=== PATIENT | male | born 1950 | race Caucasian/White ===

== ENCOUNTER → 2017-08-14 08:04 | Outpatient (CLI) | payer MEDICARE, OTHER, SELFPAY ==
[2017-08-14 09:18] LABS: Alanine Aminotransferase 22 IU/L (21-72); Albumin 3.9 g/dL (3.5-5.0); Albumin Globulin Ratio 1.5 (1.0-2.8); Alkaline Phosphatase 43 U/L (38-126); Aspartate Aminotransferase 20 IU/L (17-59); Bilirubin Total 0.7 mg/dL (0.2-1.3); Blood Urea Nitrogen 26 mg/dL (9-20); Calcium 9.2 mg/dL (8.4-10.2); Carbon Dioxide 30 mmol/L (22-32); Chloride 103 mmol/L (98-107); Cholesterol 151 mg/dL (140-199); Estimated Glomerular Filt Rate > 60.0 mL/min (>60); Globulin 2.6 g/dL (1.7-4.1); Glucose 96 mg/dL (80-110); HDL Cholesterol 25 mg/dL (40-60); HEMOLYSIS < 15 (0-50); LDL Cholesterol Calculated 103 mg/dL (<100); Potassium 4.6 mmol/L (3.4-5.1); Sodium 142 mmol/L (137-145); Total Protein 6.5 g/dL (6.3-8.2); Triglycerides 115 mg/dL (35-150)
[2017-08-14 09:33] LABS: Hemoglobin 12.2 g/dL (13.5-17.5); Mean Corpuscular HGB Conc 31.2 % (30-36); Mean Corpuscular Hemoglobin 21.4 PG (26-34); Mean Corpuscular Volume 68.4 fL (80-100); Platelet Count 239 X10^3/uL (150-400); Red Cell Distribution Width 15.4 % (11.6-14.8); White Blood Cell Count 2.9 X10^3/uL (4.5-11.0)
[2017-08-14 09:43] LABS: Prostate Specific Antigen Scrn 1.08 ng/mL (0.1-4.0)
[2017-08-14 09:52] LABS: Add Manual Diff / Slide Review YES
[2017-08-14 10:34] LABS: Thyroid Stimulating Hormone 1.84 uIU/mL (0.47-4.68)
[2017-08-14 11:54] LABS: Neutrophils Absolute Manual 1943 /uL (3000-5900); Total Cells Counted 100
[2017-08-14 11:55] LABS: Microcytosis 1+
[2017-08-14 11:56] LABS: Hypochromasia 2+; Ovalocytes 1+
== END ==
PROVIDERS: PCP Family Medicine; Visit Provider Family Medicine
DX: E78.5 Hyperlipidemia, unspecified (principal); Z12.5 Encounter for screening for malignant neoplasm of prostate; Z86.2 Personal history of diseases of the blood and blood-forming organs and certain disorders involving the immune mechanism
CPT/HCPCS: 36415; 80053; 80061; 84443; 85025; G0103

== ENCOUNTER 2017-11-15 07:29 | Day surgery (SDC) | payer MEDICARE, OTHER, SELFPAY ==
[2017-11-15] VITALS (7 sets, daily range): BP systolic 100–138; BP diastolic 65–85; PULSE 50–60; RESP 12–16; TEMP 36–36.3; O2SAT 94–96; BMI 31.7
--- NOTE | 2017-11-15 | PATH_ITS ---
[facility] Accession Number: [id number] . 01 Material submitted: . PART A: CECAL POLYP PART B: ASCENDING COLON POLYP . 02 Diagnosis: A. Cecal Polyp: Tubular adenoma. . B. Ascending Colon Polyp: Tubular adenoma. MRV/11/16/2017 . 02 Electronically signed: . Shukri Cox MD, PhD, Pathologist NPI- [id number] . 01 Gross description: . Received two formalin-filled containers, both labeled with the patient's name: . A. In a container labeled 1. Cecal polyp, the specimen consists of two 0.1-0.3 cm portions of tissue, entirely submitted in cassette A. B. In a container labeled ascending col. polyp, the specimen consists of a 0.2 cm portion of tissue, entirely submitted in cassette B. ([id number]) /FRR . 02 Pathologist provided ICD-10: D12.0, D12.2 . 02 CPT . 385804, [id number] Performed at: 01 [facility] [address] [id number] MD Mansoor Sampson MD Phone: [phone] Performed at: 02 [facility] [address] [place], [place] [id number] MD Orestes Stewart MD Phone: [phone]
[2017-11-15] MEDS: SODIUM CHLORIDE 0.9% 1,000 ML 100 ML IV (08:01)
--- NOTE | 2017-11-15 08:52 | PM.HP.1 ---
History of Present Illness Date Patient Seen: 11/15/17 Time Patient Seen: 08:53 Chief complaint: [id number] COLONOSCOPY W/POSS BX Narrative: History of polyps and surveillance colonoscopy Patient History Medical History Prostatism (Acute) Family & Social History Social History: household members spouse Tobacco & Substance use: Smoking Status Unknown if ever smoked Meds Home Medications Medication Instructions Recorded Confirmed Type ASPIRIN (#ASPIR 81) 81 mg PO Q DAY #0 09/27/12 08/22/17 History CA PANTOTHENATE/FOLIC ACID/VIT 1 tab PO Q DAY #0 09/27/12 08/22/17 History (MULTIVITAMIN) FERROUS SULFATE 325 PO QDAY #0 09/27/12 08/22/17 History magnesium citrate 300 ml PO Q DAY #0 09/27/12 08/22/17 History tamsulosin 0.4 mg capsule 0.4 mg PO BID #180 cap 07/11/17 08/22/17 Rx finasteride 5 mg tablet 5 mg PO Q DAY #90 tab 07/21/17 08/22/17 Rx Allergies Allergy/AdvReac Type Severity Reaction Status Date / Time tetracycline Allergy Mild RASH/TOPICA Verified 11/15/17 08:00 L Exam Vital Signs (past 8 hours): - HEENT: Oropharynx free of lesions Chest: Clear to auscultation percussion Cardiac exam: No S3 or murmur 11/15/17 07:43 Temperature 96.8 F L Pulse Rate 60 Respiratory Rate 16 Blood Pressure 138/85 Pulse Oximetry 96 Oxygen Delivery Method Room Air Assessment & Plan Plan: Assessment/Plan Narrative: History of polyps need for follow-up colonoscopy had a 5+ year interval Colonoscopy will be performed today
--- NOTE | 2017-11-15 08:55 | P.HP_ITS ---
History of Present Illness Date Patient Seen: 11/15/17 Time Patient Seen: 08:53 Chief complaint: [id number] COLONOSCOPY W/POSS BX Narrative: History of polyps and surveillance colonoscopy Patient History Medical History Prostatism (Acute) Family & Social History Social History: household members spouse Tobacco & Substance use: Smoking Status Unknown if ever smoked Meds Home Medications Medication Instructions Recorded Confirmed Type ASPIRIN (#ASPIR 81) 81 mg PO Q DAY #0 09/27/12 08/22/17 History CA PANTOTHENATE/FOLIC ACID/VIT 1 tab PO Q DAY #0 09/27/12 08/22/17 History (MULTIVITAMIN) FERROUS SULFATE 325 PO QDAY #0 09/27/12 08/22/17 History magnesium citrate 300 ml PO Q DAY #0 09/27/12 08/22/17 History tamsulosin 0.4 mg capsule 0.4 mg PO BID #180 cap 07/11/17 08/22/17 Rx finasteride 5 mg tablet 5 mg PO Q DAY #90 tab 07/21/17 08/22/17 Rx Allergies Allergy/AdvReac Type Severity Reaction Status Date / Time tetracycline Allergy Mild RASH/TOPICA Verified 11/15/17 08:00 L Exam Vital Signs (past 8 hours): - HEENT: Oropharynx free of lesions Chest: Clear to auscultation percussion Cardiac exam: No S3 or murmur 11/15/17 07:43 Temperature 96.8 F L Pulse Rate 60 Respiratory Rate 16 Blood Pressure 138/85 Pulse Oximetry 96 Oxygen Delivery Method Room Air Assessment & Plan Plan: Assessment/Plan Narrative: History of polyps need for follow-up colonoscopy had a 5+ year interval Colonoscopy will be performed today
[2017-11-15] MEDS: MIDAZOLAM 5 MG/5 ML VIAL IV (09:12)
[2017-11-15] MEDS: fentaNYL 250 MCG/5 ML INJ IV (09:13)
--- NOTE | 2017-11-15 09:13 | PM.OP.ENDO ---
Operative Date/Time/Diagnoses Date of procedure: 11/15/17 Time of procedure: 09:14 Pre-op diagnosis: See indications Post-op diagnosis: same Procedure & Clinicians Study performed: Colonoscopy Same procedure as scheduled: Yes Indications: History of colon polyps Surgeon: Lin Trevino Procedure Notes Procedure in detail: After informed consent was obtained the patient was placed in the left lateral decubitus position. The video colonoscope was introduced the rectum slowly advanced to the cecum. This was identified by IC valve and appendiceal orifice. On slow withdrawal mucosa was carefully examined. Preparation was excellent. Scope was removed. Patient tolerated procedure well. Blood loss none Complications none Sedation Fentanyl 100 mcg Versed 6 mg IV titration Total sedation time 22 min Findings 1. Scattered sigmoid diverticulosis. 2. 4 mm cecal polyp Jumbo biopsied removed completely 3. 6 mm polyp in the ascending colon cold snared and removed and retrieved. Patient will need follow-up colonoscopy in 5 years.
== END 2017-11-15 09:59 | disposition home or self-care (01) ==
PROVIDERS: PCP Family Medicine; Visit Provider Internal Medicine Gastroenterology
PROC: 0DJD8ZZ Inspection of Lower Intestinal Tract, Via Natural or Artificial Opening Endoscopic (ICD-10-PCS; CPT 45378; principal; 2017-11-15 08:30)
DX: Z12.11 Encounter for screening for malignant neoplasm of colon (principal); D12.0 Benign neoplasm of cecum; D12.2 Benign neoplasm of ascending colon; K57.30 Diverticulosis of large intestine without perforation or abscess without bleeding; N40.0 Benign prostatic hyperplasia without lower urinary tract symptoms; Z86.010 Personal history of colon polyps; Z79.82 Long term (current) use of aspirin
CPT/HCPCS: 45385; 45380; 88305; J2250; J3010

== ENCOUNTER → 2018-08-22 08:40 | Outpatient (CLI) | payer MEDICARE, OTHER, SELFPAY ==
[2018-08-22 09:21] LABS: Add Manual Diff / Slide Review NO; Basophils Absolute Auto 0 /uL (0-100); Basophils Percent Auto 0.6 % (0-2); Eosinophils Absolute Auto 100 /uL (0-450); Eosinophils Percent Auto 3.7 % (2-4); Hemoglobin 12.4 g/dL (13.5-17.5); Lymphocytes Absolute Auto 700 /uL (1100-4500); Lymphocytes Percent Auto 19.8 % (25-40); Mean Corpuscular HGB Conc 31.8 % (30-36); Mean Corpuscular Hemoglobin 21.5 PG (26-34); Mean Corpuscular Volume 67.5 fL (80-100); Monocytes Absolute Auto 400 /uL (0-900); Neutrophils Absolute Auto 2500 /uL (1500-7000); Neutrophils Percent Auto 65.9 % (50-75); Platelet Count 245 X10^3/uL (150-400); Red Blood Cell Count 5.78 X10^6/uL (4.5-5.9); Red Cell Distribution Width 16.2 % (11.6-14.8); White Blood Cell Count 3.7 X10^3/uL (4.5-11.0)
[2018-08-22 09:50] LABS: Alanine Aminotransferase 21 IU/L (21-72); Albumin 3.9 g/dL (3.5-5.0); Albumin Globulin Ratio 1.4 (1.0-2.8); Alkaline Phosphatase 43 U/L (38-126); Aspartate Aminotransferase 24 IU/L (17-59); Bilirubin Total 0.9 mg/dL (0.2-1.3); Blood Urea Nitrogen 21 mg/dL (9-20); Calcium 8.9 mg/dL (8.4-10.2); Carbon Dioxide 29 mmol/L (22-32); Chloride 104 mmol/L (98-107); Cholesterol 168 mg/dL (140-199); Estimated Glomerular Filt Rate > 60.0 mL/min (>60); Globulin 2.7 g/dL (1.7-4.1); Glucose 98 mg/dL (80-110); HDL Cholesterol 33 mg/dL (40-60); HEMOLYSIS < 15 (0-50); LDL Cholesterol Calculated 114 mg/dL (<100); Potassium 4.4 mmol/L (3.4-5.1); Sodium 139 mmol/L (137-145); Total Protein 6.6 g/dL (6.3-8.2); Triglycerides 103 mg/dL (35-150)
[2018-08-22 10:17] LABS: Thyroid Stimulating Hormone 2.77 uIU/mL (0.47-4.68)
[2018-08-22 10:20] LABS: Prostate Specific Antigen Scrn 1.12 ng/mL (0.1-4.0)
[2018-08-22 10:33] LABS: Basophilic Stippling 1+; Hypochromasia 1+; Polychromasia 1+
== END ==
PROVIDERS: PCP Family Medicine; Visit Provider Family Medicine
DX: D64.9 Anemia, unspecified (principal); E78.5 Hyperlipidemia, unspecified; Z12.5 Encounter for screening for malignant neoplasm of prostate
CPT/HCPCS: 36415; 80053; 80061; 84443; 85025; G0103

== ENCOUNTER → 2018-10-18 14:15 | Outpatient (CLI) | payer MEDICARE, OTHER, SELFPAY ==
[2018-10-18 15:10] LABS: Basophils Absolute Auto 0 /uL (0-100); Basophils Percent Auto 0.2 % (0-2); Eosinophils Absolute Auto 0 /uL (0-450); Eosinophils Percent Auto 1.3 % (2-4); Hematocrit 35.8 % (41-53); Hemoglobin 11.7 g/dL (13.5-17.5); Lymphocytes Absolute Auto 700 /uL (1100-4500); Lymphocytes Percent Auto 21.3 % (25-40); Mean Corpuscular HGB Conc 32.6 % (30-36); Mean Corpuscular Hemoglobin 21.6 PG (26-34); Mean Corpuscular Volume 66.2 fL (80-100); Monocytes Absolute Auto 500 /uL (0-900); Monocytes Percent Auto 15.6 % (3-14); Neutrophils Absolute Auto 2100 /uL (1500-7000); Neutrophils Percent Auto 61.6 % (50-75); Platelet Count 211 X10^3/uL (150-400); Red Blood Cell Count 5.41 X10^6/uL (4.5-5.9); Red Cell Distribution Width 15.6 % (11.6-14.8); White Blood Cell Count 3.5 X10^3/uL (4.5-11.0)
[2018-10-18 15:11] LABS: Add Manual Diff / Slide Review SLIDE REVIEW
[2018-10-18 16:21] LABS: Hypochromasia 1+; Polychromasia 1+
[2018-10-18 16:22] LABS: Microcytosis 1+
== END ==
PROVIDERS: PCP Family Medicine; Visit Provider Nurse Practitioner
DX: D56.1 Beta thalassemia (principal); D64.9 Anemia, unspecified; E61.1 Iron deficiency
CPT/HCPCS: 36415; 85025

== ENCOUNTER → 2019-10-23 07:59 | Outpatient (CLI) | payer OTHER, SELFPAY ==
--- NOTE | 2019-10-23 08:19 | DI.ECHO.S_ITS ---
: [place] : : : : [id number] : : : : Phone: [phone] Echocardiogram Report + + :Name: SHARON MCGHEE II Study Date: 10/23/2019 Height: 71 in : :[facility] Weight: 231 lb : : Gender: Male BSA: 2.2 m2 : :: 1950 Age: 69 yrs BP: 146/90 mmHg: :Reason For Study: Hypotension : :Ordering Physician: Dr. Rivera : :Radha Performed By: Carolyn Rdz : :Referring: ROZINA COOLEY : + + Interpretation Summary Left ventricular systolic function remains mildly decreased with an estimated ejection fraction of 45 to 50% with a mild dyssynchronous contraction pattern, suggestive of a conduction abnormality, but no other focal wall motion abnormalities. It appears to be slightly more dynamic compared to the previous study. Left ventricular size is borderline enlarged but smaller compared to the previous exam with an end-diastolic volume of 112 mL. There is mild to moderate concentric LVH which is similar to the previous study. Diastolic function cannot be assessed given the concurrent valvular abnormalities. The right ventricle is mildly enlarged but with preserved systolic function and appears unchanged since the previous study. Right ventricular systolic pressure is estimated at 38 mmHg with a CVP of 3 mmHg, both slightly lower compared to the previous exam. The left atrium is severely enlarged and the right atrium is mildly enlarged but both have decreased in size since the previous study. There is a mitral annular ring with reduced mobility of the posterior leaflet, consistent with a previous mitral valve repair. The anterior leaflet has restricted motion with bowing, suggestive of rheumatic heart disease but appears similar to the previous study. There is probable moderate mitral stenosis that is likely unchanged from the previous study with a peak E wave velocity of 1.3 m/s compared to 1.4 m/s previously, and a mean gradient of 6.1 mmHg compared to 6.3 mmHg measured in 12/2011. There is trivial mitral regurgitation that is less prominent compared to the previous exam. There is mild to moderate tricuspid regurgitation and mild pulmonic valve regurgitation that both appear to be unchanged compared to the previous study. The ascending aorta is mild to moderately enlarged and the aortic arch is mildly enlarged. The patient was in sinus bradycardia with heart rates between 52-61 bpm during the exam. Procedure: A two-dimensional transthoracic echocardiogram with color flow and Doppler was performed. The study quality was technically adequate. Comparison is made with the echocardiogram of 08/14/2012. The patient was in sinus bradycardia with heart rates between 52-61 bpm during the exam. Left Ventricle: There is mild-moderate concentric left ventricular hypertrophy. The left ventricle is borderline dilated. The estimated left ventricular end diastolic volume is 112 ml. The ejection fraction is estimated to be 45-50%. There is a mild dyssynchronous contraction pattern, consistent with a conduction abnormality. This is slightly more dynamic compared to the previous study. Diastolic function could not be accurately assessed due to confounding valvular disease. Right Ventricle: The right ventricle is mildly dilated. The right ventricular systolic function is normal. This is unchanged compared to the previous study. Atria: The left atrium is severely dilated. Both atria have mildly decreased in size since the prior echo exam. The right atrium is mildly dilated. There is no Doppler evidence for an interatrial shunt. Mitral Valve: The mitral valve leaflets are moderately calcified. The posterior mitral leaflet is thickened and fixed consistent with prior mitral repair surgery. An annuloplasty ring is noted in the mitral position. The mitral valve mean gradient is 6.1 mmHg. There is moderate mitral stenosis. Doming of the anterior mitral leaflet is noted. There is mild mitral regurgitation. This is less prominent compared to the previous study. Aortic Valve: The aortic valve is trileaflet. The aortic valve is slightly calcified. The aortic valve opens well. There is no aortic valve stenosis. No aortic regurgitation is present. Tricuspid Valve: The tricuspid valve is normal in structure and function. There is mild to moderate tricuspid regurgitation. This is unchanged compared to the previous study. The right ventricular systolic pressure is estimated to be at least 38 mmHg based on an estimated right atrial pressure of 3 mm Hg. This is slightly lower compared to the previous study. Pulmonic Valve: The pulmonic valve leaflets are thin and pliable; valve motion is normal. There is mild pulmonic regurgitation. This is unchanged compared to the previous study. Great Vessels: The aortic root is borderline dilated. The ascending aorta is mild-moderately enlarged. The aortic arch is mildly enlarged. The IVC is of normal diameter and collapses greater than 50% with a sniff. This suggests a low right atrial pressure of 3 mm Hg. Pericardium/ Pleura There is no pericardial effusion. There is no pleural effusion. MMode/2D Measurements & Calculations LVIDd: 5.2 cm LVOT diam: 2.5 cm LVIDs: 3.7 cm Ao root diam: 4.0 cm FS: 29.9 % asc Aorta Diam: 3.9 cm EPSS: 1.9 cm Ao Arch Diam (Prox Trans): 3.5 cm IVSd: 1.6 cm LVPWd: 1.2 cm LV huynh. diameter/BSA (cm/m^2): 2.3 LV sys. diameter/BSA (cm/m^2): 1.6 LA A2 area: 33.8 cm2 RA long axis: 6.0 cm LA A4 area: 31.7 cm2 RA area: 24.0 cm2 LA length (vol): 6.8 cm RA vol: 81.4 ml LA vol: 133.0 ml RA : 36.3 ml/m2 LA vol index: 59.3 ml/m2 IVC diam: 1.6 cm RVD1 (basal): 4.2 cm TAPSE: 2.0 cm Doppler Measurements & Calculations Ao V2 max: 116.6 cm/sec LVOT Max Sathish: 72.4 cm/sec Ao V2 mean: 74.4 cm/sec LV V1 max P.1 mmHg Ao max P.4 mmHg LV V1 VTI: 15.3 cm Ao mean P.6 mmHg PREETI(I,D): 3.1 cm2 Ao V2 VTI: 23.5 cm PREETI(V,D): 3.0 cm2 sev ratio: 0.65 PREETI indexed to BSA (cm^2/m^2): 1.4 MV E max sathish: 131.9 cm/sec TR max sathish: 294.3 cm/sec MV A max sathish: 115.7 cm/sec TR max P.7 mmHg MV E/A: 1.1 PA V2 max: 80.3 cm/sec Med Peak E' Sathish: 6.0 cm/sec PA V2 mean: 50.8 cm/sec E/E' med: 22.0 PA mean P.2 mmHg Lat Peak E' Sathish: 8.9 cm/sec PA pr(Accel): 13.9 mmHg E/E' lat: 14.8 E/e' average: 18.4 MV dec time: 0.90 sec MVA(VTI): 1.0 cm2 MV V2 mean: 119.3 cm/sec SV(LVOT): 73.8 ml MV mean P.1 mmHg MV V2 VTI: 72.2 cm Reading Physician:11:32 AM
== END ==
PROVIDERS: PCP Family Medicine; Referring Provider Family Medicine; Visit Provider Family Medicine
DX: I08.1 Rheumatic disorders of both mitral and tricuspid valves (principal); I77.89 Other specified disorders of arteries and arterioles; I95.9 Hypotension, unspecified
CPT/HCPCS: 93306

== ENCOUNTER → 2019-11-12 13:46 | Outpatient (CLI) | payer OTHER, SELFPAY ==
--- NOTE | 2019-12-05 10:19 | P.HOLT.S_ITS ---
[employer] Consultant Report Referral & Results Date Patient Seen: 11/12/19 Requesting provider: Nicole Garcia Indication: Cardiomyopathy Duration of monitoring (days): 14 Diary information: Patient had 5 triggered events and 0 diary entries Patient triggered events were associated variably with sinus rhythm, PVCs and ventricular trigeminy Data: Minimum heart rate identified was 45 beats per minute at 04:41 on 11/22/2019 Maximum sinus heart rate was 134 beats per minute at 14:35 on 11/25/2019 Maximum heart rate overall was 179 beats per minute at 10:53 on 11/18/2019 during a 4 beat run of nonsustained ventricular tachycardia Less than 1% of identified beats were supraventricular ectopic in origin Approximately 6% of identified beats were ventricular ectopic in origin which would make this a frequent occurrence. Patient had runs of ventricular bigeminy and trigeminy with the longest run of ventricular bigeminy lasting 2 minutes 38 seconds, and the longest run of ventricular trigeminy was 48.6 seconds There were 123 different runs of nonsustained ventricular tachycardia identified by the computer with the longest being 15 beats at a rate of 100 beats per minute (which suggests possible non ventricular origin), and the fastest being the 4 beat run as above. There also 3 runs of supraventricular tachycardia with the fastest being 10 beats at a rate of 167 beats per minute which was also the longest run. Given the rate it may be possible that the supraventricular tachycardia was actually atrial tachycardia Impression: This 14 day monitor technician shows significant ventricular dysrhythmias as above including frequent PVCs and a significant burden of nonsustained relatively brief runs of ventricular tachycardia. In the setting of cardiomyopathy (which is the listed diagnosis) this would be certainly concerning and may warrant cardiology consultation.
== END ==
PROVIDERS: Family Provider Family Medicine; PCP Family Medicine; Referring Provider Family Medicine; Visit Provider Family Medicine
DX: I42.9 Cardiomyopathy, unspecified (principal)
CPT/HCPCS: 0296T; 0298T

== ENCOUNTER → 2020-01-18 08:40 | Outpatient (CLI) | payer OTHER, SELFPAY ==
[2020-01-18 09:47] LABS: COVID19 -Nasal RAPID Negative (Negative)
== END ==
PROVIDERS: Family Provider Family Medicine; PCP Family Medicine; Visit Provider Physician Assistant
DX: Z11.59 Encounter for screening for other viral diseases (principal)
CPT/HCPCS: 87635

== ENCOUNTER → 2020-01-20 08:40 | Outpatient (CLI) | payer OTHER, SELFPAY ==
--- NOTE | 2020-01-20 19:57 | DI.NM.S_ITS ---
DATE OF SERVICE: 01/20/2020 PROCEDURE: Exercise perfusion study. INDICATIONS: PVCs, status post mitral valve repair, V-tach. RADIOPHARMACEUTICAL: 26.3 millicurie technetium-99m Myoview IV was injected at stress and 14.5 millicurie technetium-99m Myoview IV was injected at rest. CARDIAC STRESS: The patient underwent exercise perfusion study under the supervision of an attending staff. She walked on Tc protocol for 6 minutes 23 seconds, achieved 92 percent of target heart rate, normal blood pressure response. The patient achieved 7 METs of workload. No anginal symptoms. Baseline EKG revealed sinus rhythm with frequent PVCs, including bigeminy pattern. At 5 minutes into the exercise, PVCs got suppressed. During peak exercise, there were no obvious PVCs. In 5 minutes into the recovery, PVCs were seen again. They were monomorphic, as well as polymorphic. No sustained ventricular tachycardia seen. RAW DATA: There is increased subdiaphragmatic activity. The patient's weight is 234 pounds. GATED STUDY: Resting LV ejection fraction 55 and stress LV ejection fraction 59 percent without any obvious wall motion abnormalities. Resting end-diastolic volume 163 mL. TID ratio 0.92, which is within normal limits. Lung/heart ratio 0.27, which is within normal limits. MYOCARDIAL PERFUSION: Stress supine, resting supine and stress prone images were compared to each other. Stress supine and resting supine images revealed small to moderate size, mildly decreased perfusion of inferior wall, inferoapex which got significantly improved during prone images suggestive of diaphragmatic tissue attenuation artifact. No obvious ischemia infarction pattern seen. CONCLUSION: I will call this study likely a normal myocardial perfusion study with evidence of diaphragmatic tissue attenuation artifact which got significantly improved during prone images. Preserved left ventricular function. Frequent premature ventricular contractions at rest, which got suppressed during exercise. Normal hemodynamic response. The patient achieved 7 METs of workload. Overall this is a low-risk exercise perfusion study. Fabrice Martinez II - CRISTINA/jordon/jocelyne doc#: [id number]/job#: [id number] dd: 01/20/2020 17:49:00 dt: 01/20/2020 19:30:00 DICTATING MD/COPIES TO: Dandre Goetz MD COPIES MNE: ERIN;
== END ==
PROVIDERS: Family Provider Family Medicine; PCP Family Medicine; Referring Provider Family Medicine; Visit Provider Nurse Practitioner
DX: I47.2 Ventricular tachycardia (principal); I49.3 Ventricular premature depolarization
CPT/HCPCS: 78452; 93016; 93017; 93018; A9502

== ENCOUNTER → 2020-04-02 16:32 | Outpatient (CLI) | payer MEDICARE, SELFPAY ==
[2020-04-02] MEDS: COVID-19 VACC #1, MRNA(MOD) 100 MCG/0.5 ML VIAL IM (16:42)
== END ==
PROVIDERS: Family Provider Family Medicine; PCP Family Medicine; Visit Provider Internal Medicine
DX: Z23 Encounter for immunization (principal)
CPT/HCPCS: 0011A; 91301

== ENCOUNTER → 2020-04-30 10:48 | Outpatient (CLI) | payer MEDICARE, SELFPAY ==
[2020-04-30] MEDS: COVID-19 VACC #2, MRNA(MOD) 100 MCG/0.5 ML VIAL IM (10:56)
== END ==
PROVIDERS: Family Provider Family Medicine; PCP Family Medicine; Visit Provider Internal Medicine
DX: Z23 Encounter for immunization (principal)
CPT/HCPCS: 0012A; 91301

== ENCOUNTER → 2020-05-08 11:07 | Outpatient (CLI) | payer OTHER, SELFPAY ==
[2020-05-08 11:41] LABS: COVID19 -Nasal RAPID Negative (Negative)
== END ==
PROVIDERS: Family Provider Family Medicine; PCP Family Medicine; Visit Provider Nurse Practitioner Family
DX: Z20.822 Contact with and (suspected) exposure to COVID-19 (principal); G47.33 Obstructive sleep apnea (adult) (pediatric)
CPT/HCPCS: 87635; 95811

== ENCOUNTER → 2020-10-20 07:58 | Outpatient (CLI) | payer OTHER, SELFPAY ==
[2020-10-20 08:45] LABS: Add Manual Diff / Slide Review NO; Basophils Absolute Auto 0 /uL (0-100); Basophils Percent Auto 0.5 % (0-2); Eosinophils Absolute Auto 100 /uL (0-450); Eosinophils Percent Auto 2.2 % (2-4); Hemoglobin 12.2 g/dL (13.5-17.5); Lymphocytes Absolute Auto 800 /uL (1100-4500); Lymphocytes Percent Auto 19.3 % (25-40); Mean Corpuscular HGB Conc 31.3 % (30-36); Monocytes Absolute Auto 400 /uL (0-900); Monocytes Percent Auto 10.7 % (3-14); Neutrophils Absolute Auto 2700 /uL (1500-7000); Neutrophils Percent Auto 67.3 % (50-75); Platelet Count 211 X10^3/uL (150-400); Red Blood Cell Count 5.83 X10^6/uL (4.5-5.9)
[2020-10-20 08:46] LABS: HEMOLYSIS < 15 (0-50)
[2020-10-20 08:49] LABS: Alanine Aminotransferase 22 IU/L (<50); Albumin 3.8 g/dL (3.5-5.0); Albumin Globulin Ratio 1.5 (1.0-2.8); Alkaline Phosphatase 43 U/L (38-126); Aspartate Aminotransferase 25 IU/L (17-59); BUN Creatinine Ratio 27.5 (6-22); Bilirubin Total 0.7 mg/dL (0.2-1.3); Blood Urea Nitrogen 22 mg/dL (9-20); Calcium 9.1 mg/dL (8.4-10.2); Carbon Dioxide 27 mmol/L (22-32); Chloride 105 mmol/L (98-107); Cholesterol 112 mg/dL (140-199); Estimated Glomerular Filt Rate > 60.0 mL/min (>60); Globulin 2.5 g/dL (1.7-4.1); Glucose 101 mg/dL (80-110); HDL Cholesterol 31 mg/dL (40-60); LDL Cholesterol Calculated 61 mg/dL (<100); Potassium 4.2 mmol/L (3.4-5.1); Sodium 136 mmol/L (137-145); Total Protein 6.3 g/dL (6.3-8.2); Triglycerides 100 mg/dL (35-150)
[2020-10-20 09:10] LABS: Iron 98 ug/dL (49-181)
[2020-10-20 09:37] LABS: Ferritin 36 ng/mL (18-464)
[2020-10-20 09:48] LABS: Hypochromasia 1+; Microcytosis 1+
[2020-10-20 12:08] LABS: Hep C Virus Ab w/Reflex Quant NEGATIVE s/c (NEGATIVE)
== END ==
PROVIDERS: Family Provider Family Medicine; PCP Family Medicine; Referring Provider Family Medicine; Visit Provider Family Medicine
DX: E78.5 Hyperlipidemia, unspecified (principal); I42.2 Other hypertrophic cardiomyopathy; Z78.9 Other specified health status; Z12.5 Encounter for screening for malignant neoplasm of prostate
CPT/HCPCS: 80053; 80061; 82728; 83540; 85025; 86803; G0103

== ENCOUNTER → 2022-06-07 08:20 | Outpatient (CLI) | payer OTHER, SELFPAY ==
--- NOTE | 2022-06-07 08:25 | DI.US.S_ITS ---
PROCEDURE: US ABD AORTA ANEURYSM SCREEN INDICATIONS: SCREEN TECHNIQUE: Real time scanning was performed of the aorta and iliac arteries, with image documentation. COMPARISON: None. FINDINGS: Aorta: Proximal aortic diameter measures 1.9 cm. Mid-aorta measures 1.6 cm. Distal aortic diameter is 1.3 cm. Iliac arteries: Right common iliac artery measures 1.1 cm. Left common iliac artery measures 0.9 cm. IMPRESSION: No ectasia or aneurysmal dilatation of the aorta or iliac arteries. Dictated by: Kendy Holly M.D. on 06/07/2022 at 12:39 Approved by: Kendy Holly M.D. on 06/07/2022 at 12:43
== END ==
PROVIDERS: Family Provider Family Medicine; PCP Family Medicine; Referring Provider Family Medicine; Visit Provider Family Medicine
DX: Z13.6 Encounter for screening for cardiovascular disorders (principal)
CPT/HCPCS: 76706

== ENCOUNTER → 2022-10-20 08:02 | Outpatient (CLI) | payer OTHER, SELFPAY ==
--- NOTE | 2022-10-20 | DI.ECHO.S_ITS ---
[facility]---------+ [facility] +---------+ : : [address] [place] : : : : [phone] : : : : Phone: [phone] Echocardiogram Report + + :Name: SHARON MCGHEE II Study Date: 10/20/2022 Height: 71 in : :[facility] ReadingLocation: Weight: 245 lb : : Gender: Male BSA: 2.3 m2 : :: 1950 Age: 72 yrs BP: 126/73 mmHg: :Reason For Study: Other Ventricular Tachycardia : :Ordering Physician: ALTA, : :LINDSEY Performed By: Radha Martinez : :Referring: LINDSEY HOLM : + + Interpretation Summary The left ventricle is normal in size. The ejection fraction is estimated to be 50-55%. Previous LVEF 45 to 50%. The right ventricle is mild to moderately dilated. The right ventricular systolic function is normal. The mitral valve leaflets are moderately calcified. The posterior mitral leaflet is thickened and fixed consistent with prior mitral repair surgery. An annuloplasty ring is noted in the mitral position. The mitral valve mean gradient is 5.0 mmHg. There is moderate mitral stenosis. Previously 6.1 mmHg. No significant MR. There is mild to moderate tricuspid regurgitation. Compared to the prior echo exam, there has been no change in TR severity. The right ventricular systolic pressure is estimated to be at least 38 mmHg based on an estimated right atrial pressure of 3 mm Hg. Compared to the prior echo exam, there has been no change in the severity of pulmonary hypertension. Procedure: A two-dimensional transthoracic echocardiogram with color flow and Doppler was performed. The study quality was technically adequate. Comparison is made with the echocardiogram of 10/23/2019. The patient had occasional PVCs during the exam. The patient was in normal sinus rhythm during the exam. Left Ventricle: The left ventricle is normal in size. There is mild concentric left ventricular hypertrophy. There is no thrombus. The ejection fraction is estimated to be 50-55%. Septal motion is consistent with conduction abnormality. MV E/A: 0.98 Med Peak E' Sathish: 4.9 cm/sec E/E' med: 21.1. Right Ventricle: The right ventricle is mild to moderately dilated. In subcostal view there appears to be linear artifact in RA. I reviewed the chart. Patient does not have any history of pacemaker. The right ventricular systolic function is normal. Atria: The left atrium is severely dilated. There has been no significant change since the previous study. The right atrium is borderline dilated. There is no Doppler evidence for an interatrial shunt. Mitral Valve: An annuloplasty ring is noted in the mitral position. The mitral valve leaflets are moderately calcified. The posterior mitral leaflet is thickened and fixed consistent with prior mitral repair surgery. An annuloplasty ring is noted in the mitral position. The mitral valve mean gradient is 5.0mmHg. There is moderate mitral stenosis. Previously 6.1 mmHg. No significant MR. The mitral valve mean gradient is 5 mmHg. There is no mitral regurgitation noted. Aortic Valve: The aortic valve is trileaflet. The aortic valve opens well. There is no aortic valve stenosis. No aortic regurgitation is present. Tricuspid Valve: The tricuspid valve is normal. There is no tricuspid stenosis. There is mild to moderate tricuspid regurgitation. The right ventricular systolic pressure is estimated to be at least 38 mmHg based on an estimated right atrial pressure of 3 mm Hg. Compared to the prior echo exam, there has been no change in TR severity. Compared to the prior echo exam, there has been no change in the severity of pulmonary hypertension. Pulmonic Valve: The pulmonic valve leaflets are thin and pliable; valve motion is normal. There is no pulmonic valvular stenosis. There is mild to moderate pulmonic regurgitation. Great Vessels: The aortic root is normal size. The ascending aorta is at the upper limits of normal in size. The pulmonary artery is normal size. The IVC is of normal diameter and collapses greater than 50% with a sniff. This suggests a low right atrial pressure of 3 mm Hg. Pericardium/ Pleura There is no pericardial effusion. There is an anterior echo-free space consistent with a fat pad. There is no pleural effusion. MMode/2D Measurements & Calculations LVIDd: 5.1 cm LVOT diam: 2.3 cm LVIDs: 3.2 cm Ao root diam: 3.6 cm FS: 37.3 % asc Aorta Diam: 3.8 cm IVSd: 1.1 cm LVPWd: 1.3 cm LV huynh. diameter/BSA (cm/m^2): 2.2 LV sys. diameter/BSA (cm/m^2): 1.4 LA A2 area: 28.1 cm2 RA long axis: 6.1 cm LA A4 area: 25.3 cm2 RA area: 21.5 cm2 LA length (vol): 6.0 cm RA vol: 64.3 ml LA vol: 100.2 ml RA : 28.0 ml/m2 LA vol index: 43.6 ml/m2 RVD1 (basal): 5.5 cm LVLs ap4: 6.8 cm LVLd ap2: 7.1 cm TAPSE_phl: 1.7 cm LVLs ap2: 6.7 cm Doppler Measurements & Calculations Ao V2 max: 113.5 cm/sec LVOT Max Sathish: 78.2 cm/sec Ao V2 mean: 78.7 cm/sec LV V1 max P.4 mmHg Ao max P.0 mmHg LV V1 VTI: 19.7 cm Ao mean P.0 mmHg PREETI(I,D): 2.9 cm2 Ao V2 VTI: 28.7 cm PREETI(V,D): 2.9 cm2 sev ratio: 0.69 PREETI indexed to BSA (cm^2/m^2): 1.2 MV E max sathish: 104.0 cm/sec TR max sathish: 297.5 cm/sec MV A max sathish: 106.0 cm/sec TR max P.4 mmHg MV E/A: 0.98 PA V2 max: 94.3 cm/sec Med Peak E' Sathish: 4.9 cm/sec PA V2 mean: 63.4 cm/sec E/E' med: 21.1 PA mean P.0 mmHg Lat Peak E' Sathish: 6.9 cm/sec PA pr(Accel): 37.6 mmHg E/E' lat: 15.2 E/e' average: 18.1 MV dec time: 0.59 sec MVA(VTI): 1.0 cm2 MV V2 mean: 108.0 cm/sec SV(LVOT): 81.8 ml MV mean P.0 mmHg MV V2 VTI: 79.1 cm AV VR_phl: 0.69 PREETI(VTI)/BSA_phl: 1.2 Reading Physician:06:15 PM
== END ==
PROVIDERS: Family Provider Family Medicine; PCP Family Medicine; Referring Provider Internal Medicine Cardiovascular Disease; Visit Provider Internal Medicine Cardiovascular Disease
DX: I08.1 Rheumatic disorders of both mitral and tricuspid valves (principal); I47.29 Other ventricular tachycardia; Z98.890 Other specified postprocedural states
CPT/HCPCS: 93306

== ENCOUNTER 2023-01-23 08:00 | Day surgery (SDC) | payer OTHER, SELFPAY ==
[2023-01-23] VITALS (7 sets, daily range): BP systolic 91–115; BP diastolic 53–78; PULSE 50–83; RESP 12–18; TEMP 36–36.2; O2SAT 92–97; BMI 33.5
[2023-01-23] MEDS: LACTATED RINGERS 1,000 ML 42 ML IV (08:31)
--- NOTE | 2023-01-23 09:17 | PM.HP.1 ---
History of Present Illness History of Present Illness Date Patient Seen: 01/23/23 Time Patient Seen: 09:17 Chief complaint: Dx Colonoscopy Narrative: Patient is here for colon polyp surveillance. [facility] Medical History mounter sousaphones associated with adverse incidents (~07/2020) BPH loc w/o ur obs/LUTS (~2017) Cardiac murmur, unspecified Ulcer of esophagus due to gastroesophageal reflux disease without complication Essential hypertension Insomnia due to medical condition History of snoring Iron deficiency anemia (~2013) Obstructive sleep apnea, adult (~2020) Obesity (BMI 30-39.9) Excessive daytime sleepiness Surgical History H/O mitral valve repair Family History Father Loud snoring Restless leg Hypertension Mother Loud snoring Family/Other Loud snoring Sleep apnea Obesity Depression Social History household members: significant other Smoking Status: Former smoker alcohol intake: current Meds Home Medications and Allergies Home Medications Medication Instructions Recorded Confirmed Type aspirin 81 mg capsule 81 mg PO DAILY ##0 09/27/12 01/23/23 History ferrous sulfate 325 mg (65 mg 325 mg PO TID ##0 09/27/12 01/23/23 History iron) tablet finasteride 5 mg tablet 5 mg PO Q DAY #90 tabs 11/08/18 01/23/23 Rx atorvastatin 10 mg tablet 10 mg PO DAILY 05/14/20 01/23/23 History metoprolol succinate 25 mg 12.5 mg PO DAILY 05/14/20 01/23/23 History tablet,extended release 24 hr losartan 25 mg tablet 25 mg PO DAILY 01/23/23 01/23/23 History tamsulosin 0.4 mg capsule 0.4 mg PO BID 01/23/23 01/23/23 History Allergies Allergy/AdvReac Type Severity Reaction Status Date / Time tetracycline Allergy Mild RASH/TOPICA Verified 01/23/23 08:14 L Review of Systems Review of Systems ROS: Yes All systems reviewed with the patient and are negative except as otherwise documented Exam Vital Signs (past 8 hours): - 01/23/23 08:29 Temperature 96.8 F L Pulse Rate 83 Respiratory Rate 16 Blood Pressure 115/78 Pulse Oximetry 97 Oxygen Delivery Method Room Air Oxygen Delivery Method Room Air Const General: cooperative HENMT Head: normal to inspection Eyes General: appearance normal, both eyes and all related structures Neck Neck: normal visual inspection Chest Chest: normal inspection of the chest Resp Effort & Inspection: normal respiratory effort Cardio Rate: regular rate GI Inspection: normal to inspection Skin General: no rashes or lesions noted Neuro General: patient alert and patient awake Extrem General: normal to inspection and no pedal edema Psych Appearance: grossly normal Assessment & Plan Assessment & Plan narrative: 72-year-old male with a personal history of colon polyps. Surveillance colonoscopy is pursued today.
--- NOTE | 2023-01-23 09:19 | PM.PREOP ---
Pre-operative Note Interval Note History & Physical reviewed/Exam performed by Physician: Yes Changes to H&P: No ASA Class (for procedural sedation): II
--- NOTE | 2023-01-23 09:41 | PM.OP.COLON ---
Operative Date/Time/Diagnoses Date of procedure: 01/23/23 Time of procedure: 09:42 Pre-op diagnosis: Personal history of colon polyps Post-op diagnosis: same Procedure & Clinicians Study performed: Colonoscopy Same procedure as scheduled: Yes Indications: Personal history of colon polyps Surgeon: Noé Robert Procedure Notes SCOAP/Timeout: Done Procedure in detail: After the risks and benefits were explained, written and verbal informed consent was obtained. The patient was brought into the procedure room and placed into the left lateral decubitus position. Please see anesthesia notes for sedation details. Digital rectal examination was accomplished. The scope was introduced into the patient and advanced under direct visualization to the cecum as identified by the appendiceal orifice and ileocecal valve. The scope was slowly withdrawn to carefully examine the mucosa for any defects or lesions. Comprehensive imaging was accomplished throughout the rectum including the dentate line. The colon was decompressed, the scope was then removed from the patient who tolerated the procedure well. Adult colonoscope Bowel prep adequate Scope withdrawal time: 10 minutes Sedation minutes: 16 Specimen(s): none sent Complications: none Impression: No significant polyps mass lesions or inflammatory features identified throughout. Grade 1 internal hemorrhoids were noted. Endoscopic diagnosis 1. Grade 1 hemorrhoids 2. Otherwise visually unremarkable exam Post-procedure Plan for aftercare: Repeat colonoscopy 5 years considering prior history of adenomatous polyps Disposition: PACU
--- NOTE | 2023-01-23 10:26 | SUR.PHASEII ---
Pt denies any complaints and denies dizziness states he wants to go home and go to bed.
== END 2023-01-23 10:27 | disposition home or self-care (01) ==
PROVIDERS: Family Provider Family Medicine; PCP Family Medicine; Referring Provider Internal Medicine Gastroenterology; Visit Provider Internal Medicine Gastroenterology
PROC: 0DJD8ZZ Inspection of Lower Intestinal Tract, Via Natural or Artificial Opening Endoscopic (ICD-10-PCS; CPT 45378; principal; 2023-01-23 09:00)
DX: Z12.11 Encounter for screening for malignant neoplasm of colon (principal); Z86.010 Personal history of colon polyps; K64.0 First degree hemorrhoids
CPT/HCPCS: G0105

== ENCOUNTER → 2024-11-29 12:29 | Outpatient (CLI) | payer OTHER, SELFPAY ==
--- NOTE | 2024-11-29 | DI.ECHO.S_ITS ---
[facility] : : [id number] : [place] : : [id number] : : Phone: [phone] Echocardiogram Report + + :Name: SHARON MCGHEE II Study Date: 11/29/2024 Height: 70 in : :[facility] ReadingLocation: Weight: 250 lb : : Gender: Male BSA: 2.3 m2 : :: 1950 Age: 74 yrs BP: 114/61 mmHg: :Reason For Study: Mitral valve repair : :Ordering Physician: ALTA, : :LINDSEY Performed By: Garrett Gomez : :Referring: LINDSEY HOLM : + + Interpretation Summary The left ventricle is mildly dilated. The left ventricular ejection fraction is normal. Left ventricular ejection fraction is estimated to be 60 +/- 5%. Previous LVEF 50 to 55%. Grade II diastolic dysfunction with elevated left atrial pressure. The right ventricle is mildly dilated. The right ventricular systolic function is normal. Prior mitral repair surgery, The posterior mitral leaflet is thickened and fixed. Mitral valve meanPG 4.65 at a heart rate of 51 BPM. Previously 5 mmHg. There is mild to moderate tricuspid regurgitation. Compared to the prior echo exam, there has been no change in TR severity. The right ventricular systolic pressure is estimated to be at least 48 mmHg based on an estimated right atrial pressure of 3 mm Hg. Previously 38 mmHg. Procedure: A two-dimensional transthoracic echocardiogram with color flow and Doppler was performed. The study quality was technically adequate. Comparison is made with the echocardiogram of 10/20/2022. The heart rate ranged between 54-64 bpm during the study. The patient was in normal sinus rhythm during the exam. Left Ventricle: Left ventricular wall thickness is mildly increased. The left ventricle is mildly dilated. There is no thrombus. Left ventricular ejection fraction is estimated to be 60 +/- 5%. The left ventricular ejection fraction is normal. Septal motion is consistent with conduction abnormality. Grade II diastolic dysfunction with elevated left atrial pressure. Right Ventricle: The right ventricle is mildly dilated. The right ventricular systolic function is normal. Atria: The left atrium is moderately dilated. The left atrium has mildly decreased in size since the prior echo exam. The right atrium is moderately dilated. There is no Doppler evidence for an interatrial shunt. Mitral Valve: Prior mitral repair surgery, The posterior mitral leaflet is thickened and fixed. An annuloplasty ring is noted in the mitral position. Mitral valve meanPG 4.65 at a heart rate of 51 BPM. There is trace mitral regurgitation. Aortic Valve: The aortic valve is trileaflet. The aortic valve opens well. There is no aortic valve stenosis. No aortic regurgitation is present. Tricuspid Valve: There is tricuspid annular calcification. There is mild to moderate tricuspid regurgitation. The right ventricular systolic pressure is estimated to be at least 48 mmHg based on an estimated right atrial pressure of 3 mm Hg. Compared to the prior echo exam, there has been no change in TR severity. Pulmonic Valve: The pulmonic valve is not well seen, but is grossly normal. There is mild pulmonic regurgitation. Great Vessels: The aortic root is normal size. The ascending aorta could not be visualized. The aortic arch could not be visualized. The pulmonary artery is normal size. The IVC is of normal diameter and collapses greater than 50% with a sniff. This suggests a low right atrial pressure of 3 mm Hg. Pericardium/ Pleura There is no pericardial effusion. MMode/2D Measurements & Calculations LVIDd: 6.5 cm LA A2 area: 27.1 cm2 LVIDs: 3.5 cm LA A4 area: 27.1 cm2 FS: 45.7 % LA length (vol): 6.6 cm IVSd: 1.1 cm LA vol: 94.5 ml LVPWd: 1.1 cm LA vol index: 41.2 ml/m2 LV huynh. diameter/BSA (cm/m^2): 2.8 LV sys. diameter/BSA (cm/m^2): 1.5 RA long axis: 6.0 cm RVD1 (basal): 4.5 cm RA area: 18.6 cm2 RVD2 (mid): 4.1 cm RA vol: 48.9 ml TAPSE: 1.9 cm RA : 21.3 ml/m2 IVC diam: 1.6 cm Doppler Measurements & Calculations Ao V2 max: 103.3 cm/sec LVOT Max Sathish: 80.0 cm/sec Ao V2 mean: 66.5 cm/sec LV V1 max P.6 mmHg Ao max P.3 mmHg LV V1 VTI: 18.8 cm Ao mean P.2 mmHg sev ratio: 0.88 Ao V2 VTI: 21.5 cm MV E max sathish: 125.7 cm/sec TR max sathish: 335.4 cm/sec MV A max sathish: 107.5 cm/sec TR max P.0 mmHg MV E/A: 1.2 PA V2 max: 97.6 cm/sec Med Peak E' Sathish: 4.9 cm/sec PA V2 mean: 69.1 cm/sec E/E' med: 25.9 PA mean P.1 mmHg Lat Peak E' Sathish: 5.3 cm/sec PA pr(Accel): 37.9 mmHg E/E' lat: 23.8 E/e' average: 24.9 MV dec time: 0.44 sec MV V2 mean: 103.3 cm/sec MV mean P.7 mmHg MV V2 VTI: 63.3 cm Reading Physician:06:21 PM
== END ==
PROVIDERS: Family Provider Family Medicine; PCP Family Medicine; Referring Provider Internal Medicine Cardiovascular Disease; Visit Provider Internal Medicine Cardiovascular Disease
DX: I07.1 Rheumatic tricuspid insufficiency (principal); Z98.890 Other specified postprocedural states
CPT/HCPCS: 93306

== ENCOUNTER → 2024-12-03 09:41 | Outpatient (CLI) | payer OTHER, SELFPAY ==
--- NOTE | 2024-12-03 09:44 | DI.RAD.S_ITS ---
PROCEDURE: XR SHOULDER RT MIN 2V INDICATIONS: Pain in right shoulder. TECHNIQUE: Three views of the right shoulder were acquired. COMPARISON: None. FINDINGS: Bones: There are no osseous abnormalities. Acromioclavicular and glenohumeral joints: Moderate acromioclavicular and mild glenohumeral degeneration noted . Soft tissues: No soft tissue swelling, calcification or mass. IMPRESSION: Degeneration Dictated by: Jesus Mccormick M.D. on 12/04/2024 at 10:09 Approved by: Jesus Mccormick M.D. on 12/04/2024 at 10:09
== END ==
PROVIDERS: Family Provider Family Medicine; PCP Family Medicine; Referring Provider Family Medicine; Visit Provider Family Medicine
DX: M19.011 Primary osteoarthritis, right shoulder (principal); M25.511 Pain in right shoulder
CPT/HCPCS: 73030